=== PATIENT | male | born 1950 | race Caucasian/White ===

== ENCOUNTER 2016-11-03 08:53 | Day surgery (SDC) | payer MEDICARE, BC ==
[2016-11-03] MEDS ORDERED: Phenylephrine 10% Ophth Soln 5 ML Bot EYELF ONE (09:00)
[2016-11-03] MEDS ORDERED: Timolol Maleate 0.5% Ophth Soln 5 ML Bottle EYELF ONE (09:00)
[2016-11-03] MEDS ORDERED: Povidone-Iodine 5% Sterile Ophth Soln 30 ML Bottle EYELF ONE ×2 (09:00→09:54)
[2016-11-03] MEDS ORDERED: Cataract Ophth Solution EYELF ONE (09:00)
[2016-11-03] MEDS ORDERED: Moxifloxacin 0.5% Ophth Soln 3 ML Bottle EYELF ONE (09:00)
[2016-11-03] MEDS ORDERED: Proparacaine 0.5% Ophth Soln 15 ML Bottle EYELF ONE (09:00)
[2016-11-03] MEDS ORDERED: Sodium Chloride 0.9% 10 ML Syringe IV PRN (09:30)
[2016-11-03] MEDS ORDERED: Midazolam 1 MG/ML 2 ML SDV ONE (09:34)
[2016-11-03] MEDS ORDERED: Dexamethasone 4 MG/ML SDV ONE (09:34)
[2016-11-03] MEDS ORDERED: Tetracaine HCl/PF 0.5% 4 ML Bottle EYELF ONE (09:54)
[2016-11-03] MEDS ORDERED: Dexamethasone/Neomycin/Polymyxin B Ophth Oint 3.5 GM Tube EYELF ONE (09:55)
[2016-11-03] MEDS ORDERED: Diclofenac Sodium 0.1% Ophth Soln 5 ML Bottle EYELF ONE (09:55)
[2016-11-03] MEDS ORDERED: Balanced Salt Solution Ophth Irrig 500 ML Bottle IOCULAR ONE (09:57)
[2016-11-03] MEDS ORDERED: Lidocaine 1% 30 ML SDV ONE (09:57)
[2016-11-03] MEDS ORDERED: Apraclonidine 0.5% Ophth Soln 5 ML Bot EYELF ONE (09:57)
[2016-11-03] MEDS ORDERED: Chondroitin Sulfate/Hyaluronate Sodium Ophth Inj 0.75 ML Syringe EYELF ONE (09:58)
[2016-11-03] MEDS ORDERED: Vancomycin 500 MG SDV EYELF ONE (09:58)
--- NOTE | 2016-11-03 11:20 | OR ---
DATE: 11/03/2016 PREOPERATIVE DIAGNOSIS: Cataract, left eye. POSTOPERATIVE DIAGNOSIS: Cataract, left eye. PROCEDURE: Extracapsular cataract extraction with intraocular lens implant, left eye. ANESTHESIA: Topical/local MAC. COMPLICATIONS: None. INDICATION: Mr. Dickens was seen in the clinic. He has complained of a progressive decrease in vision. Clinical examination revealed visually significant cataract. I explained options. I offered cataract surgery and I explained risks. He is symptomatic and requested surgery to improve vision and function. We discussed implant options. He requested a monofocal implant. Specifically explained the potential for infection, retinal detachment, loss of vision, need for additional surgery, and risks associated with anesthesia. He voiced an understanding. He wished to proceed. OPERATIVE DESCRIPTION: After informed consent was obtained and the risks, benefits, and alternatives were explained, the patient was brought to the operative suite and topical anesthesia was administered. The patient was then prepped and draped in the sterile fashion and attention was placed on the left eye. A sterile lid speculum was placed into the left eye to allow operative exposure. A full-thickness paracentesis was made in the temporal portion of the operative eye. Preservative-free lidocaine 0.1 mL was injected into the anterior chamber followed by viscoelastic. A full-thickness corneal incision was then made into the anterior chamber. A bent needle cystotome was used to create a small calvin in the anterior capsule. The capsulorrhexis forceps was then used to create a 360-degree curvilinear capsulorrhexis. The nucleus was then removed using a phacoemulsification handpiece and the remaining cortical material was then removed with irrigation and aspiration handpiece. Following removal of the cortical material, the capsular bag was then inspected and noted to be free of any holes or tears. Viscoelastic was then injected into the capsular bag and the intraocular lens was inserted into the capsular bag. No complications occurred. The viscoelastic material was then removed from both the anterior and posterior chambers and from behind the IOL. The lens and capsular bag were then reinspected. The IOL was well centered and the capsular bag intact. The wound and paracentesis sites were inspected and hydrated with balanced saline solution. Both were found to be self-sealing. The intraocular pressure was assessed digitally and found to be within normal range. A good red reflex was noted at the completion of the procedure. No complications occurred during the operation. At the completion of the procedure, Aramis Rodriguez, and Iopidine drops were placed into the operative eye. A sterile eye shield was placed over the operative eye and the patient was transported to the postoperative recovery area having tolerated the procedure well. Postoperative instructions were given along with a postoperative appointment. The patient was advised to call with any questions or concerns. [facility] /[id number]
[2016-11-03 12:42] VITALS: BP 136/80
[2016-11-03] MEDS ORDERED: Dexamethasone 4 MG/ML SDV IV ONE (14:38)
[2016-11-03] MEDS ORDERED: Midazolam 1 MG/ML 2 ML SDV IV ONE (14:38)
== END 2016-11-03 11:10 | disposition home or self-care (01) ==
LOC: DL.SDS 08:53
PROVIDERS: ATTEND Ophthalmology
DX: H26.9 Unspecified cataract (principal); Z79.899 Other long term (current) drug therapy
CPT/HCPCS: 00142; 66984; A9270; J1100; J2250; J3370; J7050; V2632

== ENCOUNTER 2023-03-30 05:47 | Day surgery (SDC) | payer MEDICARE, OTHER ==
[2023-03-30] MEDS ORDERED: Dextrose 5%-0.45% NaCl 1,000 ML IV SCH (06:00)
[2023-03-30] MEDS ORDERED: Midazolam 1 MG/ML 2 ML SDV ONE (06:39)
[2023-03-30] MEDS ORDERED: fentaNYL 100 MCG/2 ML SDV ONE (06:39)
[2023-03-30] MEDS ORDERED: fentaNYL 100 MCG/2 ML SDV IV ONE ×2 (06:57)
[2023-03-30] MEDS ORDERED: Midazolam 1 MG/ML 2 ML SDV IV ONE ×6 (06:58→07:07)
[2023-03-30 08:15] VITALS: BP 96/60; PULSE 57
== END 2023-03-30 09:10 | disposition home or self-care (01) ==
LOC: DL.ENDO 05:47
PROVIDERS: ATTEND Internal Medicine Gastroenterology
DX: Z12.11 Encounter for screening for malignant neoplasm of colon (principal); D12.2 Benign neoplasm of ascending colon; K57.30 Diverticulosis of large intestine without perforation or abscess without bleeding; D49.519 Neoplasm of unspecified behavior of unspecified kidney; Z86.2 Personal history of diseases of the blood and blood-forming organs and certain disorders involving the immune mechanism
CPT/HCPCS: 45385; J2250; J3010; J7042; 88305